=== PATIENT | male | born 1955 | race Two or more races ===

== ENCOUNTER 2022-05-29 07:43 | Emergency (ER) | payer MEDICARE, OTHER ==
[~2022-05-29] VITALS: Ht 160 cm; Wt 68.1 kg
[2022-05-29 08:01] VITALS: BP 165/75
[2022-05-29] MEDS ORDERED: ACETAMINOPHEN 500 MG TAB PO ONE (08:45)
[2022-05-29] MEDS ORDERED: ACET-1080 PO (09:11)
== END 2022-05-29 09:16 | disposition home or self-care (01) ==
LOC: ER 07:43
DX: S63.287A Dislocation of proximal interphalangeal joint of left little finger, initial encounter (principal); W01.0XXA Fall on same level from slipping, tripping and stumbling without subsequent striking against object, initial encounter; Y93.89 Activity, other specified; Y92.89 Other specified places as the place of occurrence of the external cause; Y99.8 Other external cause status
CPT/HCPCS: 26770; 73130; 73140